=== PATIENT | male | born 1930 | race Two or more races ===

== ENCOUNTER 2017-07-03 06:20 | Inpatient (IN) | payer MEDICARE, MEDICAID ==
[~2017-07-03] VITALS: Ht 160 cm; Wt 65.8 kg
[2017-07-03] MEDS ORDERED: ACETAMINOPHEN 650 MG/SUPP.RECT RC ONE ×2 (06:30→07:16)
[2017-07-03] MEDS ORDERED: MEROPENEM 1 G in IV NS 0.9% 100 ML IV ONE (06:30)
[2017-07-03] MEDS ORDERED: VANCOMYCIN 1 GM in IV D5W 250 ML IV ONE (06:30)
[2017-07-03] MEDS ORDERED: IV NS 0.9% 1,000 ML BAG IV ONE (06:30)
--- NOTE | 2017-07-03 06:30 | NUR ---
TO BED 8 IS AN 86 YO MALE PATIENT BBRA FROM [facility] FOR SOB AND FEVER. PATIENT IS OBTUNDED. NONREBREATHER WHILE ENROUTE, TACHYPNEIC. KEPT HOB ELEVATED. PATENT AIRWAY OBTAINED VIA DEEP SUCTION BY RT AT BEDSIDE. PLACED ON TELE/VS MONITORING. DR GREGORY AT BEDSIDE. SKIN WARM AND DRY.
--- NOTE | 2017-07-03 06:32 | NUR ---
STARTED A SECOND IV LINE ON THE LFA G16, BLOOD BACK FLOW NOTED, FLUSHED WITH EASE. TAPED SECURELY. NS 2000CC BOLUS STARTED. ONGOING MONITORING IN PLACE. PATIENT SATTING AT 99%, EVEN AND UNLABORED BREATHING NOTED.
--- NOTE | 2017-07-03 06:45 | NUR ---
INSERTED [place] CATH F16 PER DR GREGORY VERBAL ORDER, DRAINED ABOUT 200CC OF ORANGE COLORED URINED. URINE SAMPLE COLLECTED, SENT TO LAB.
--- NOTE | 2017-07-03 06:55 | NUR ---
BANKING PARALEGAL AT BEDSIDE TO DRAW BLOOD.
[2017-07-03] MEDS ORDERED: VANCOMYCIN 1 GM VIAL ONE (07:15)
[2017-07-03] MEDS ORDERED: MEROPENEM 1 G VIAL IV ONE (07:15)
--- NOTE | 2017-07-03 07:15 | NUR ---
RT AT BEDSIDE TO DRAW ABG AND COLLECT RESPIRATORY CULTURE SAMPLES.
--- NOTE | 2017-07-03 07:16 | NUR ---
RT AT BEDSIDE FOR ABG
[2017-07-03 07:23] LABS: HEMATOCRIT 38 % (39-51); HEMOGLOBIN 12.6 g/dL (13.5-17.5); LYMPHOCYTES # (AUTO) 0.3 /CMM (0.8-4.8); LYMPHOCYTES % (AUTO) 7.7 % (20.0-44.0); MEAN CORPUSCULAR HEMOGLOBIN 28 PG (26.0-33.0); MEAN CORPUSCULAR HGB CONC 33 g/dl (31.0-36.0); MEAN CORPUSCULAR VOLUME 85 fL (80-96); MONOCYTES % (AUTO) 1.2 % (2.0-12.0); NEUTROPHILS # (AUTO) 3.7 /CMM (1.8-8.9); NEUTROPHILS % (AUTO) 91.1 % (43.0-81.0); PLATELET COUNT (AUTO) 227 /CMM (150-450); RDW COEFFICIENT OF VARIATION 14.9 (11.5-15.0); WHITE BLOOD COUNT (AUTO) 4.1 K/uL (4.3-11.0)
[2017-07-03 07:25] LABS: APPEARANCE,URINE SL CLOUDY (CLEAR); BILIRUBIN,URINE NEGATIVE (NEGATIVE); BLOOD, URINE TRACE Ery/uL (NEGATIVE); COLOR,URINE YELLOW (YELLOW); KETONES,URINE TRACE (NEGATIVE); LEUKOCYTE ESTERASE ,URINE NEGATIVE (NEGATIVE); NITRITE, URINE NEGATIVE (NEGATIVE); PH,URINE 5.5 (5.0-8.0); PROTEIN,URINE 1+ mg/dl (NEGATIVE); UGLUCOSE NEGATIVE (NEGATIVE); UROBILINOGEN,URINE 0.2 EU/dL (0.2)
--- NOTE | 2017-07-03 07:30 | NUR ---
PT NOTED NOTED SOILED- CLEANED AND CHANGED PER PROTOCOL.
[2017-07-03 07:31] LABS: ABG BASE EXCESS -8.3 mmol/L; ABG OXYGEN SATURATION 98.2 % (92.0-98.5); ABG PCO2 24.7 mmHg (35.0-45.0); ABG PH 7.397 (7.350-7.450); ABG PO2 143.1 mmHg (75.0-100.0); AaDO2 401.4 mmHg; COHb 0.1 % (0.5-1.5); MetHb 0.7 % (0.0-1.5); O2Hb 97.4 % (94.0-97.0); SITE, ABG Right Radial; VENT MODE, BG NRB
[2017-07-03 07:36] LABS: RBC,URINE 0-2 /HPF (0-2)
[2017-07-03 07:36] LABS: INR 1.24 (0.87-1.13)
[2017-07-03 07:37] LABS: BACTERIA,URINE Few /HPF (None Seen); MUCUS,URINE Few /LPF (None Seen); SQUAMOUS EPITHELIAL CELL,UR Few /HPF (None Seen)
[2017-07-03 07:41] LABS: ALANINE AMINOTRANSFERASE 189 U/L (12-78); ALBUMIN 2.3 g/dL (3.4-5.0); ALKALINE PHOSPHATASE 151 U/L (46-116); ASPARTATE AMINOTRANSFERASE 96 U/L (15-37); BILIRUBIN,DIRECT 0.3 mg/dL (0.0-0.2); BILIRUBIN,TOTAL 0.9 mg/dL (0.2-1.0); CALCIUM, SERUM 7.9 mg/dL (8.5-10.1); CARBON DIOXIDE 20 mmol/L (21-32); CHLORIDE 123 mmol/L (98-107); CREATININE 1.9 mg/dL (0.6-1.3); GLUCOSE 148 mg/dL (74-106); POTASSIUM 3.5 mmol/L (3.5-5.1); TOTAL PROTEIN, SERUM 7.4 g/dL (6.4-8.2); UREA NITROGEN, BLOOD 39 mg/dL (7-18)
[2017-07-03 07:42] LABS: TROPONIN I 0.375 ng/mL (0.00-0.056)
[2017-07-03 07:45] LABS: SODIUM SERUM 158 mmol/L (136-145)
--- NOTE | 2017-07-03 07:51 | NUR ---
PAGED DR DYER FOR EPIC
[2017-07-03] MEDS ORDERED: LEVO100T9 PO (07:59)
[2017-07-03] MEDS ORDERED: MEMA10TA PO (07:59)
[2017-07-03] MEDS ORDERED: DOCU100C36 PO (07:59)
[2017-07-03] MEDS ORDERED: MAGN400O6 PO (07:59)
[2017-07-03] MEDS ORDERED: NA P133E RC (07:59)
[2017-07-03] MEDS ORDERED: BENA40TA2 PO (07:59)
[2017-07-03] MEDS ORDERED: ACET-868 PO (07:59)
[2017-07-03] MEDS ORDERED: ASPI-1169 PO (07:59)
[2017-07-03] MEDS ORDERED: POTA20TA83 PO (07:59)
--- NOTE | 2017-07-03 08:00 | NUR ---
SANGITA COOPER CALLED FOR TELE BED.
--- NOTE | 2017-07-03 08:39 | NUR ---
TELE BED 327-2
--- NOTE | 2017-07-03 08:50 | NUR ---
CALLED [facility] FOR 3 TIMES FOR REPORT WAS PUT ON HOLD.
[2017-07-03] MEDS ORDERED: NA PHOS,M-B/NA PHOS,DI-BA 1 EA ENEMA RC PRN (09:00)
[2017-07-03] MEDS ORDERED: MAG HYDROX/AL HYDROX/SIMETH 30 ML UDC PO PRN (09:00)
[2017-07-03] MEDS ORDERED: HYDROCODONE/APAP 5/325MG 1 EACH TABLET PO PRN (09:00)
[2017-07-03] MEDS ORDERED: Z GUARD REMEDY 2 OZ OINT TP PRN (09:00)
[2017-07-03] MEDS ORDERED: ACETAMINOPHEN 325 MG TABLET PO PRN (09:00)
[2017-07-03] MEDS ORDERED: ZOLPIDEM TARTRATE 5 MG TABLET PO PRN (09:00)
[2017-07-03] MEDS ORDERED: MORPHINE SULFATE INJ 4 MG/ML DISP.SYRIN IV PRN (09:00)
[2017-07-03] MEDS ORDERED: ONDANSETRON HCL/PF 4 MG/2 ML VIAL IVP PRN (09:00)
[2017-07-03] MEDS ORDERED: MAGNESIUM HYDROXIDE 30 ML UDC PO PRN ×2 (09:00)
[2017-07-03] MEDS ORDERED: FEE PK DOSING 1 MIN EA MC ONE (09:24)
--- NOTE | 2017-07-03 09:25 | NUR ---
BS REPORT GIVEN TO SUMMER ANDRADE FOR ALBAN.
--- NOTE | 2017-07-03 09:28 | NUR ---
Tele Receiving note Received patient via gurney from ER. Bedside SBAr given. PAtient assisted into the bed safely. Bed is locked in lowest position, side rails up x3, bed alarm is on. Patient is obtundent, awake, responsive to light pain. Patient is in a room close to nurses station for close observation.Patient is on 10 L oxygen via the face mask, patient's vital sins are BP 96/55, HR 83, RR 18, Axillary temperature 99.7F, spo2 100%. Dr. Guerrero seen patient already. Patient presents with sacral redness with impaired skin integrity and perianal redness. Pictures taken and placed in the chart. Wound consult will be ordered. Patient's family is at the bedside. Will continue to assess/monitor throughout the shift.
[2017-07-03 09:30] VITALS: BP 98/56
[2017-07-03] MEDS ORDERED: MEMANTINE HCL 5 MG TABLET PO SCH (09:35)
--- NOTE | 2017-07-03 10:08 | NUR ---
Critical lab values reported by lab: lactic acid-3.[address] Guerrero informed.
[2017-07-03 12:00] VITALS: BP 126/80
[2017-07-03] MEDS: ASPIRIN 81 MG TAB.CHEW PO SCH (12:05)
[2017-07-03] MEDS: PANTOPRAZOLE 40 MG VIAL IV SCH (12:05)
[2017-07-03] MEDS: PIPERACILLIN /TAZOBACTAM 3.375 G in IV D5W 50 ML IV SCH ×3 (12:10→23:35)
[2017-07-03] MEDS: IV D5W 1,000 ML IV PRN (12:11)
[2017-07-03 13:30] LABS: THYROID STIMULATING HORMONE 1.866 uIU/mL (0.358-3.74)
[2017-07-03 16:00] VITALS: BP 101/72
--- NOTE | 2017-07-03 16:00 | NUR ---
CALLED [facility] AND SPOKE TO HOME MORTGAGE DISCLOSURE ACT SPECIALIST DEONTE VERIFYING PATIENT'S CODE STATUS. DEONTE FAXED OVER THE POLST OF THE PATIENT. PATIENT IS DNR. POLST PLACED IN THE CHART. CHART/CODE STATUS UPDATED TO DNR.
[2017-07-03] MEDS ORDERED: ACETAMINOPHEN 650 MG/SUPP.RECT RC PRN (18:30)
--- NOTE | 2017-07-03 18:30 | NUR ---
PATIENT'S TEMPERATURE IS TRENDING UP. CURRENTLY 100.1F DR DYER INFORMED. ORDER OBTAINED FOR SUPPOSITORY TYLENOL. READ BACK AND VERIFIED. WILL CARRY OUT RECEIVED. COOLING MEASURES APPLIED.
[2017-07-03] MEDS: LACTOBACILLUS RHAMNOSUS GG 1 EACH CAP.SPRINK PO SCH (18:33)
--- NOTE | 2017-07-03 19:12 | NUR ---
PERSONAL INJURY LAW SPECIALISTPEST CONTROL APPLICATOR NOTE Gave bedside SBAR report on the patient. Patient is obtunded, asleep, easily awaken in bed. Bed is locked, in lowest position, side rails up x3, bed alarm is on. Call light within reach. Educated to call for assistance using the call light. Patient appears to be uncomfortable. Suggested to the warehouse worker 2nd shift nurse to administer analgesic as prescribed. Tylenol administrated. Latest temperature 100.1F. External plastic cnc machine operator reading SR with BBB HR 77. Chest is rising equally, bilaterally. Spo2 97% on 10L oxygen via face mask. All needs are met at this time. Endorsed to the warehouse worker 2nd shift nurse for ale.
--- NOTE | 2017-07-03 19:25 | NUR ---
TELE/RN NOTES RECEIVED PT. LYING IN BED. PT. IS NON-VERBAL, OPENS EYES. BREATHING EVEN AND UNLABORED ON 10LPM FACE MASK. NO SOB, RESPIRATORY DISTRESS OR S/S OF PAIN NOTED AT THIS TIME. PT. WITH EXTERNAL TEAR DOWN MATCHER PRESENT AND INTACT. CURRENT RHYTHM = SINUS WITH BBB HR 72. PT. WITH RIGHT FOREARM 18 GAUGE IV SALINE LOCK PRESENT, PATENT AND INTACT. PT. WITH LEFT FOREARM PERIPHERAL IV PRESENT, PATENT AND INTACT ADMINISTERING TO PT. D5W @ 75ML/HR. PT. WITH [place] CATHETER PRESENT, PATENT AND INTACT DRAINING YELLOW URINE. PER DAYSHIFT NURSE PT. HAD TEMPERATURE 100.1 AND TYLENOL SUPPOSITORY WAS ADMINISTERED ORDERED. COOLING MEASURES IMPLEMENTED, CONTINUED AND IN PLACE. WILL RE-CHECK PT. TEMPERATURE AND CONTINUE COOLING MEASURES NEEDED. PER DAYSHIFT NURSE AWARE OF PT. LACTIC ACID 3.5 AND TROPONIN 0.459 WITH NO NEW ORDERS. BED LOCKED AND IN LOWEST POSITION, SIDE RAILS UP X3, BED ALARM ON, WILL CONTINUE TO MONITOR.
[2017-07-03 20:00] VITALS: BP 122/75
--- NOTE | 2017-07-03 20:08 | NUR ---
TELE/RN NOTES PT. TEMPERATURE IS 99.3. COOLING MEASURES EFFECTIVE. WILL CONTINUE COOLING MEASURES. WILL CONTINUE TO MONITOR.
--- NOTE | 2017-07-03 21:20 | NUR ---
TELE/RN NOTES PT. TEMPERATURE 98.9F. COOLING MEASURES EFFECTIVE, WILL CONTINUE COOLING MEASURES. WILL CONTINUE TO MONITOR.
[2017-07-03] MEDS: DOCUSATE SODIUM 100 MG CAPSULE PO SCH (22:00)
--- NOTE | 2017-07-03 22:30 | NUR ---
TELE/RN NOTES PT. TEMPERATURE 98.1F. COOLING MEASURES EFFECTIVE. WILL CONTINUE TO MONITOR.
--- NOTE | 2017-07-03 22:53 | NUR ---
TELE/RN NOTES UNABLE TO ADMINISTER TO PT. COLACE MEDICATION ORDERED. PT. KEPT NPO PENDING SWALLOW EVAL. WILL CONTINUE TO MONITOR.
[2017-07-04] VITALS: BP 109/55
[2017-07-04] MEDS: IV D5W 1,000 ML IV PRN (03:13)
[2017-07-04 04:00] VITALS: BP 124/66
[2017-07-04] MEDS: PIPERACILLIN /TAZOBACTAM 3.375 G in IV D5W 50 ML IV SCH ×4 (05:50→23:43)
--- NOTE | 2017-07-04 06:11 | NUR ---
TELE/RN NOTES PT. IS LYING IN BED. PT. IS NON-VERBAL, OPENS EYES. BREATHING EVEN AND UNLABORED ON 10LPM FACE MASK. NO SOB, RESPIRATORY DISTRESS OR S/S OF PAIN NOTED AT THIS TIME. PT. WITH EXTERNAL INSTALLMENT ACCOUNT CHECKER PRESENT AND INTACT. CURRENT RHYTHM = SINUS RHYTHM WITH BBB HR 77. PT. WITH RIGHT FOREARM 18 GAUGE IV SALINE LOCK PRESENT, PATENT AND INTACT. PT. WITH LEFT FOREARM PERIPHERAL IV PRESENT, PATENT AND INTACT ADMINISTERING TO PT. D5W @ 75ML/HR. PT. WITH [place] CATHETER PRESENT, PATENT AND INTACT. ALL PT. NEEDS MET. PT. OFFLOADED, TURNED AND REPOSITIONED Q2H AND NEEDED. BED LOCKED AND IN LOWEST POSITION, SIDE RAILS UP X3, BED ALARM ON, WILL ENDORSE TO DAYSHIFT NURSE FOR CONTINUITY OF CARE.
[2017-07-04] MEDS: LEVOTHYROXINE SODIUM 100 MCG TABLET PO SCH (07:30)
[2017-07-04 08:00] VITALS: BP 105/66
--- NOTE | 2017-07-04 08:00 | NUR ---
tele brick cleaner: initial assessment received pt in bed with eyes open, appears lethargic, but arousable. pt is on 10l/min via mask. hob elevated. reality orientation provided prn. am due med held. will continue to monitor.
[2017-07-04 08:06] LABS: BASOPHILS % (AUTO) 0.1 % (0.0-2.0); EOSINOPHILS # (AUTO) 0.1 /CMM (0.0-0.7); EOSINOPHILS % (AUTO) 1.5 % (0.0-6.0); HEMATOCRIT 35 % (39-51); HEMOGLOBIN 11.3 g/dL (13.5-17.5); LYMPHOCYTES # (AUTO) 0.6 /CMM (0.8-4.8); LYMPHOCYTES % (AUTO) 8.4 % (20.0-44.0); MEAN CORPUSCULAR HEMOGLOBIN 28 PG (26.0-33.0); MEAN CORPUSCULAR HGB CONC 33 g/dl (31.0-36.0); MEAN CORPUSCULAR VOLUME 87 fL (80-96); MONOCYTES # (AUTO) 0.1 /CMM (0.1-1.30); MONOCYTES % (AUTO) 2.1 % (2.0-12.0); NEUTROPHILS # (AUTO) 6.2 /CMM (1.8-8.9); NEUTROPHILS % (AUTO) 87.9 % (43.0-81.0); PLATELET COUNT (AUTO) 164 /CMM (150-450); RDW COEFFICIENT OF VARIATION 15.1 (11.5-15.0); RED BLOOD CELL COUNT(AUTO) 3.99 MIL/uL (4.5-6.0)
[2017-07-04 08:13] LABS: ALANINE AMINOTRANSFERASE 120 U/L (12-78); ALKALINE PHOSPHATASE 110 U/L (46-116); ASPARTATE AMINOTRANSFERASE 82 U/L (15-37); BILIRUBIN,TOTAL 0.6 mg/dL (0.2-1.0); CALCIUM, SERUM 7.7 mg/dL (8.5-10.1); CARBON DIOXIDE 24 mmol/L (21-32); CHLORIDE 118 mmol/L (98-107); CREATININE 1.4 mg/dL (0.6-1.3); GLUCOSE 135 mg/dL (74-106); MAGNESIUM 2.6 mg/dL (1.8-2.4); PHOSPHORUS 2.8 mg/dL (2.5-4.9); POTASSIUM 3.4 mmol/L (3.5-5.1); SODIUM SERUM 153 mmol/L (136-145); TOTAL PROTEIN, SERUM 6.7 g/dL (6.4-8.2); UREA NITROGEN, BLOOD 34 mg/dL (7-18)
[2017-07-04] MEDS: ASPIRIN 81 MG TAB.CHEW PO SCH (08:51)
[2017-07-04] MEDS: LACTOBACILLUS RHAMNOSUS GG 1 EACH CAP.SPRINK PO SCH ×2 (08:52→16:33)
[2017-07-04] MEDS: VANCOMYCIN 0.75 GM in IV NS 0.9% 250 ML IV SCH (09:10)
[2017-07-04] MEDS: PANTOPRAZOLE 40 MG VIAL IV SCH (09:12)
--- NOTE | 2017-07-04 09:20 | NUR ---
tele lead fire protection engineer: s.t. eval swallow eval done at bedside, pt failed swallow eval per phillip. all am meds held due to pt condition this morning.
[2017-07-04] MEDS ORDERED: POTASSIUM CHLORIDE 20 MEQ TAB.PRT.SR PO SCH (09:30)
--- NOTE | 2017-07-04 09:50 | NUR ---
tele certified nurse practitioner: notes lab called re: troponin 2.648. dr. unnez (councilman) here and made aware.
[2017-07-04] MEDS: CARVEDILOL 3.125 MG TABLET PO SCH ×2 (10:00→21:00)
[2017-07-04] MEDS: POTASSIUM CL. PREMIX PERIPHER. 50 ML IV SCH ×2 (10:20→11:28)
--- NOTE | 2017-07-04 10:30 | NUR ---
tele licensed psychologist director: notes [place] (acnp) here and made aware re: failed swallow eval and still npo per s.t. recommendation; also pt troponin trending up to 2.648 with no new order at this time. pt is dnr.
--- NOTE | 2017-07-04 10:43 | NUR ---
tele track repair supervisor: sirena lozada (wound nurse) assessed pt skin. family visiting at this time.
--- NOTE | 2017-07-04 10:54 | NUR ---
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 PT HAS LOWER EXTREMITY CONTRACTURES. PT IS IMMOBILE WITH LEIF SCORE OF 11. FIRST STEP MATTRESS ORDERED. ALL WOUND CARE AND SKIN PROTECTION RECOMMENDATIONS DISCUSSED WITH NURSING STAFF. WILL SEE PRN. CORONEL IN AGREEMENT WITH PLAN OF CARE. Addendum: 07/04/17 at 1056 by IRAM KOENIG WNDNU Amended: Links added.
[2017-07-04] MEDS ORDERED: HYDROGEL DRESSING 90 GM TUBE TP PRN (11:00)
[2017-07-04] MEDS ORDERED: HYDROGEL DRESSING 90 GM TUBE TP SCH (11:00)
[2017-07-04 11:08] LABS: NEUTROPHILS % (MANUAL) 83 (42-76)
[2017-07-04 11:09] LABS: BAND % (MANUAL) 6 % (0.0-5.0); EOSINOPHILS % (MANUAL) 2 % (0-4); LYMPHOCYTES % (MANUAL) 7 % (16-48); MONOCYTES % (MANUAL) 2 % (0-11.0)
--- NOTE | 2017-07-04 11:30 | NUR ---
tele weatherization coordinator: md visit seen and examined by india (acnp) at this time. family remains at bedside. all questions and concerns answered by india and updated plan of care. for id consult per site project manager.
[2017-07-04 12:00] VITALS: BP 132/76
[2017-07-04 12:21] LABS: *SPE A/G RATIO 0.7 (0.7-1.7); *SPE ALBUMIN 2.6 g/dL (2.9-4.4); *SPE ALPHA-1-GLOBULIN 0.4 g/dL (0.0-0.4); *SPE ALPHA-2-GLOBULIN 1.1 g/dL (0.4-1.0); *SPE GLOBULIN, TOTAL 3.6 g/dL (2.2-3.9); *SPE M-SPIKE Not Observed g/dL (Not Observed); *SPEGAMMA GLOBULIN 1.1 g/dL (0.4-1.8)
--- NOTE | 2017-07-04 12:32 | NUR ---
tele customer expert: neuro f/u seen by dr. sebastian with order of stat ct head without contrast. order acknowledged.
--- NOTE | 2017-07-04 12:50 | NUR ---
tele quality assistant: nephro f/u seen by dr. verdin at this time with new orders. orders acknowledged.
--- NOTE | 2017-07-04 12:52 | NUR ---
tele student life vice president: notes taken down via bed for ct head stat at this time, accompanied by tech.
--- NOTE | 2017-07-04 13:53 | NUR ---
tele aeronautical research engineer: notes titrated o2 to 8l/min via mask. will continue to monitor.
--- NOTE | 2017-07-04 14:06 | NUR ---
tele aircraft parts assembler: notes areli lebron called and informed me that pt is positive mrsa nares. cn and made aware. pt to start on bactroban giulia to nostril. isolation precaution maintained.
--- NOTE | 2017-07-04 14:34 | NUR ---
tele epic willow analyst: notes lab called re: trop=[phone]. indai (acnp) notified and made aware with no new order, stated, "can you call dr. nunez." dr. nunez notified and made aware with no new order. pt is dnr status. cn made aware. also informed [place] that pt has no anticoagulation medication, pt is on baby aspirin only.
[2017-07-04 16:00] VITALS: BP 129/84
[2017-07-04] MEDS: CLOTRIMAZOLE 1% 15 GM TUBE TP SCH (16:55)
--- NOTE | 2017-07-04 18:30 | NUR ---
tele gold reclaimer: notes pt tolerated o2 of 8l/min via mask. titrated o2 to 6l/min via mask. hob elevated. pt remains npo, lethargic. continue on ivf, infusing well. needs attended. call light within reach. will continue to monitor.
--- NOTE | 2017-07-04 19:19 | NUR ---
TELE/RN NOTES PT. IS LYING IN BED. PT. IS NON-VERBAL, RESTING BREATHING EVEN AND UNLABORED ON 6LPM FACE MASK. NO SOB, RESPIRATORY DISTRESS OR S/S OF PAIN NOTED AT THIS TIME. PT. WITH EXTERNAL RECRUITMENT INTERN PRESENT AND INTACT. PT. WITH RIGHT FOREARM 18 GAUGE IV SALINE LOCK PRESENT, PATENT AND INTACT. PT. WITH LEFT FOREARM PERIPHERAL IV PRESENT, PATENT AND INTACT ADMINISTERING TO PT. D1/2 NS WITH 20 MEQ KCL @ 125ML/HR. PT. WITH [place] CATHETER PRESENT, PATENT AND INTACT DRAINING YELLOW URINE. PER DAYSHIFT NURSE PT. FAILED SWALLOW EVAL AND REMAINS NPO AT THIS TIME AND WILL BE RE-EVALUATED TOMORROW. PT. REMAINS ON CONTACT ISOLATION, ISOLATION PRECAUTIONS IMPLEMENTED AND IN PLACE. BED LOCKED AND IN LOWEST POSITION, SIDE RAILS UP X3, BED ALARM ON, WILL CONTINUE TO MONITOR.
[2017-07-04 20:00] VITALS: BP 120/74
[2017-07-04] MEDS ORDERED: MUPIROCIN OINT 2% 22 GM TUBE SCH (21:00)
--- NOTE | 2017-07-04 21:30 | NUR ---
TELE/RN NOTES NOTIFIED EPIC BLOCKER AUTOMATIC CPAS FREDA PT. WITH CRITICAL LAB VALUE: TROPONIN 8.57. PER CPAS FREDA OK NO NEW ORDERS AT THIS TIME. WILL CONTINUE TO MONITOR.
--- NOTE | 2017-07-04 21:31 | NUR ---
TELE/RN NOTES UNABLE ADMINISTER TO PT. COREG MEDICATION ORDERED. PT. IS LETHARGIC AND BEING KEPT NPO AT THIS TIME. PT. FAILED SWALLOW EVALUATION TODAY AND WILL BE RE-EVALUATED TOMORROW. WILL CONTINUE TO MONITOR.
[2017-07-04] MEDS: MUPIROCIN OINT 2% 22 GM TUBE SCH (21:45)
[2017-07-04] MEDS: DOCUSATE SODIUM 100 MG CAPSULE PO SCH (22:00)
--- NOTE | 2017-07-04 22:24 | NUR ---
TELE/RN NOTES UNABLE TO ADMINISTER TO PT. COLACE MEDICATION ORDERED. PT. IS LETHARGIC AND NPO AT THIS TIME. WILL CONTINUE TO MONITOR.
[2017-07-05] VITALS: BP 109/63
--- NOTE | 2017-07-05 | NUR ---
MS/RN NOTES PT. WITH TEMPERATURE OF 99.6F. COOLING MEASURES IMPLEMENTED. WILL CONTINUE TO MONITOR.
--- NOTE | 2017-07-05 01:10 | NUR ---
MS/RN NOTES PT. TEMPERATURE 98.7F. COOLING MEASURES EFFECTIVE. WILL CONTINUE TO MONITOR.
[2017-07-05 04:00] VITALS: BP 100/53
[2017-07-05] MEDS ORDERED: IV PREMIX 0.45% NS + KCL 1,000 ML IV ONE (04:54)
[2017-07-05] MEDS: PIPERACILLIN /TAZOBACTAM 3.375 G in IV D5W 50 ML IV SCH ×4 (05:49→23:33)
--- NOTE | 2017-07-05 06:45 | NUR ---
MS/RN NOTES PT. IS LYING IN BED RESTING, BREATHING EVEN AND UNLABORED ON 8LPM FACE MASK. NO SOB, RESPIRATORY DISTRESS OR S/S OF PAIN NOTED AT THIS TIME. PT. WITH RIGHT FOREARM 18 GAUGE IV SALINE LOCK PRESENT, PATENT AND INTACT. PT. WITH LEFT FOREARM PERIPHERAL IV PRESENT, PATENT AND INTACT ADMINISTERING TO PT. D1/2 NS WITH 20 MEQ KCL @ 125ML/HR. PT. WITH [place] CATHETER PRESENT, PATENT AND INTACT DRAINING YELLOW URINE. PT. REMAINS NPO AND ON CONTACT ISOLATION, ISOLATION. ALL PT. NEEDS MET. PT. OFFLOADED, TURNED AND REPOSITIONED Q2H AND NEEDED. BED LOCKED AND IN LOWEST POSITION, SIDE RAILS UP X3, BED ALARM ON, WILL ENDORSE TO DAYSHIFT NURSE FOR CONTINUITY OF CARE.
[2017-07-05] MEDS: LEVOTHYROXINE SODIUM 100 MCG TABLET PO SCH (07:30)
--- NOTE | 2017-07-05 07:45 | NUR ---
RN NOTES RECEIVED PATIENT IN BED, ASLEEP, EASILY AROUSABLE DURING CARE. RESPIRATIONS EVEN AND UNLABORED, CONTINUED ON 8L OF OXYGEN VIA FACEMASK,IN NO APPARENT PAIN OR DISCOMFORT AT THIS TIME, CONTINUED ON PAIN MANAGEMENT. IV ACCESS TO RFA PATENT AND INTACT, NO REDNESS OR INFILTRATION NOTED. SAFETY MEASURES IN PLACE,CALL LIGHT WITHIN EASY REACH WILL CONTINUE TO MONITOR
[2017-07-05 08:00] VITALS: BP 109/65
[2017-07-05 08:34] LABS: BASOPHILS % (AUTO) 0.1 % (0.0-2.0); EOSINOPHILS # (AUTO) 0.3 /CMM (0.0-0.7); EOSINOPHILS % (AUTO) 3.2 % (0.0-6.0); HEMATOCRIT 33 % (39-51); LYMPHOCYTES # (AUTO) 0.8 /CMM (0.8-4.8); LYMPHOCYTES % (AUTO) 7.2 % (20.0-44.0); MEAN CORPUSCULAR HEMOGLOBIN 29 PG (26.0-33.0); MEAN CORPUSCULAR HGB CONC 33 g/dl (31.0-36.0); MEAN CORPUSCULAR VOLUME 86 fL (80-96); MONOCYTES # (AUTO) 0.3 /CMM (0.1-1.30); MONOCYTES % (AUTO) 2.5 % (2.0-12.0); NEUTROPHILS # (AUTO) 9.1 /CMM (1.8-8.9); RDW COEFFICIENT OF VARIATION 14.7 (11.5-15.0); RED BLOOD CELL COUNT(AUTO) 3.87 MIL/uL (4.5-6.0); WHITE BLOOD COUNT (AUTO) 10.5 K/uL (4.3-11.0)
[2017-07-05] MEDS: ASPIRIN 81 MG TAB.CHEW PO SCH (08:36)
[2017-07-05] MEDS: CARVEDILOL 3.125 MG TABLET PO SCH ×2 (08:36→21:00)
[2017-07-05] MEDS: LACTOBACILLUS RHAMNOSUS GG 1 EACH CAP.SPRINK PO SCH ×2 (08:37→17:00)
[2017-07-05 09:14] LABS: BAND % (MANUAL) 7 % (0.0-5.0); EOSINOPHILS % (MANUAL) 3 % (0-4); LYMPHOCYTES % (MANUAL) 5 % (16-48); MONOCYTES % (MANUAL) 4 % (0-11.0); NEUTROPHILS % (MANUAL) 81 (42-76)
[2017-07-05 09:16] LABS: PLATELET COUNT (AUTO) 159 /CMM (150-450)
[2017-07-05] MEDS: PANTOPRAZOLE 40 MG VIAL IV SCH (09:35)
[2017-07-05] MEDS: CLOTRIMAZOLE 1% 15 GM TUBE TP SCH ×2 (09:43→17:30)
[2017-07-05] MEDS: MUPIROCIN OINT 2% 22 GM TUBE SCH ×2 (09:43→21:27)
[2017-07-05] MEDS: VANCOMYCIN 0.75 GM in IV NS 0.9% 250 ML IV SCH (09:44)
[2017-07-05 09:46] LABS: CALCIUM, SERUM 7.7 mg/dL (8.5-10.1); CARBON DIOXIDE 23 mmol/L (21-32); CHLORIDE 115 mmol/L (98-107); CREATININE 1.2 mg/dL (0.6-1.3); GLUCOSE 96 mg/dL (74-106); MAGNESIUM 2.5 mg/dL (1.8-2.4); PHOSPHORUS 2.8 mg/dL (2.5-4.9); POTASSIUM 3.7 mmol/L (3.5-5.1); SODIUM SERUM 149 mmol/L (136-145); UREA NITROGEN, BLOOD 27 mg/dL (7-18)
[2017-07-05 09:53] LABS: TROPONIN I 5.061 ng/mL (0.00-0.056)
[2017-07-05 16:00] VITALS: BP 136/70
--- NOTE | 2017-07-05 19:13 | NUR ---
RN NOTES PATIENT IN BED, ASLEEP, EASILY AROUSABLE DURING CARE. RESPIRATIONS EVEN AND UNLABORED, CONTINUED ON 8L OF OXYGEN VIA FACEMASK,IN NO APPARENT PAIN OR DISCOMFORT AT THIS TIME, CONTINUED ON PAIN MANAGEMENT.[place] CATHETER PATENT AND INTACT. IV ACCESS TO RFA PATENT AND INTACT, NO REDNESS OR INFILTRATION NOTED. SAFETY MEASURES IN PLACE,CALL LIGHT WITHIN EASY REACH WILL CONTINUE TO MONITOR AND ENDORSE TO NEXT SHIFT FOR CONTINUITY OF CARE
--- NOTE | 2017-07-05 19:49 | NUR ---
RN NOTES RECEIVED PATIENT IN BED, AWAKE, EASILY AROUSABLE DURING CARE. RESPIRATIONS EVEN AND UNLABORED, CONTINUED ON OF OXYGEN VIA FACE MASK,IN NO APPARENT PAIN OR DISCOMFORT AT THIS TIME, CONTINUED ON PAIN MANAGEMENT. IV ACCESS TO RIGHT FOR ARM PATENT AND INTACT, NO REDNESS OR INFILTRATION NOTED. SAFETY MEASURES IN PLACE,CALL LIGHT WITHIN EASY REACH WILL CONTINUE TO MONITOR
[2017-07-05 20:00] VITALS: BP 139/73
[2017-07-05] MEDS: IPRATROPIUM NEB FS 0.5 MG/2.5 ML AMPUL.NEB NEB SCH (20:10)
[2017-07-05 21:00] VITALS: BP 134/73
[2017-07-05] MEDS: DOCUSATE SODIUM 100 MG CAPSULE PO SCH (21:31)
--- NOTE | 2017-07-05 21:32 | NUR ---
RN NOTES UNABLE ADMINISTER TO PT. COREG MEDICATION ORDERED. PT. IS LETHARGIC AND BEING KEPT NPO AT THIS TIME. PT. FAILED SWALLOW EVALUATION WILL CONTINUE TO MONITOR.
--- NOTE | 2017-07-05 21:35 | NUR ---
RN NOTES UNABLE TO ADMINISTER TO PT. COLACE MEDICATION ORDERED. PT. IS LETHARGIC AND NPO AT THIS TIME. WILL CONTINUE TO MONITOR.
[2017-07-06] MEDS: IPRATROPIUM NEB FS 0.5 MG/2.5 ML AMPUL.NEB NEB SCH ×4 (01:46→19:43)
[2017-07-06] MEDS: PIPERACILLIN /TAZOBACTAM 3.375 G in IV D5W 50 ML IV SCH ×2 (05:36→11:47)
[2017-07-06] MEDS: LEVOTHYROXINE SODIUM 100 MCG TABLET PO SCH (07:30)
--- NOTE | 2017-07-06 07:39 | NUR ---
MS RN: INITIAL NOTE RECEIVED PT NON-VERBAL, OPEN EYES. LETHARGIC. NO SOB NOTED. ON 8L MASK SATING AT 94%. NO PAIN NOTED VIA FLACC SCALE. INCONTINENT. USES DIAPER. HOB ELEVATED 30 DEGREES AT ALL TIMES. [place] CATH IN PLACE AND DRAINING. BEDBOUND. TURNED AND REPOSITIONED Q 2HOURS. L FA#18 RUNNING 1/2 NS AT MEQ KCL AR 125ML/HR. ON CONTACT ISOLATION FOR MRSA NARES. RESTING COMFORTABLY IN BED. CALL LIGHT WITHIN REACH.
[2017-07-06 07:43] LABS: BASOPHILS % (AUTO) 0.2 % (0.0-2.0); EOSINOPHILS # (AUTO) 0.3 /CMM (0.0-0.7); EOSINOPHILS % (AUTO) 3.1 % (0.0-6.0); HEMATOCRIT 37 % (39-51); HEMOGLOBIN 12.1 g/dL (13.5-17.5); LYMPHOCYTES # (AUTO) 0.5 /CMM (0.8-4.8); LYMPHOCYTES % (AUTO) 5.8 % (20.0-44.0); MEAN CORPUSCULAR HEMOGLOBIN 28 PG (26.0-33.0); MEAN CORPUSCULAR HGB CONC 33 g/dl (31.0-36.0); MEAN CORPUSCULAR VOLUME 85 fL (80-96); MONOCYTES # (AUTO) 0.3 /CMM (0.1-1.30); MONOCYTES % (AUTO) 3.3 % (2.0-12.0); NEUTROPHILS # (AUTO) 7.4 /CMM (1.8-8.9); NEUTROPHILS % (AUTO) 87.6 % (43.0-81.0); PLATELET COUNT (AUTO) 191 /CMM (150-450); RDW COEFFICIENT OF VARIATION 14.3 (11.5-15.0); WHITE BLOOD COUNT (AUTO) 8.4 K/uL (4.3-11.0)
[2017-07-06 07:49] LABS: ALANINE AMINOTRANSFERASE 106 U/L (12-78); ALKALINE PHOSPHATASE 177 U/L (46-116); ASPARTATE AMINOTRANSFERASE 76 U/L (15-37); BILIRUBIN,TOTAL 0.8 mg/dL (0.2-1.0); CALCIUM, SERUM 7.7 mg/dL (8.5-10.1); CARBON DIOXIDE 21 mmol/L (21-32); CHLORIDE 110 mmol/L (98-107); CREATININE 1.2 mg/dL (0.6-1.3); GLUCOSE 85 mg/dL (74-106); MAGNESIUM 2.3 mg/dL (1.8-2.4); PHOSPHORUS 2.5 mg/dL (2.5-4.9); POTASSIUM 3.8 mmol/L (3.5-5.1); SODIUM SERUM 144 mmol/L (136-145); TOTAL PROTEIN, SERUM 7.1 g/dL (6.4-8.2); UREA NITROGEN, BLOOD 19 mg/dL (7-18)
[2017-07-06 08:30] LABS: TROPONIN I 2.784 ng/mL (0.00-0.056)
[2017-07-06] MEDS: PANTOPRAZOLE 40 MG VIAL IV SCH (08:36)
[2017-07-06] MEDS: VANCOMYCIN 0.75 GM in IV NS 0.9% 250 ML IV SCH (08:36)
[2017-07-06] MEDS: ASPIRIN 81 MG TAB.CHEW PO SCH (08:36)
[2017-07-06] MEDS: LACTOBACILLUS RHAMNOSUS GG 1 EACH CAP.SPRINK PO SCH (08:37)
[2017-07-06] MEDS: CARVEDILOL 3.125 MG TABLET PO SCH (08:37)
[2017-07-06] MEDS: MUPIROCIN OINT 2% 22 GM TUBE SCH ×2 (08:38→21:05)
[2017-07-06] MEDS: CLOTRIMAZOLE 1% 15 GM TUBE TP SCH (08:38)
--- NOTE | 2017-07-06 08:58 | NUR ---
RECHECKED BP MANUALLY. 155/92, PULSE 87. NO DISTRESS NOTED. NOTIEF MARIAH DUTTON. WILL CONTINUE TO MONITOR.
[2017-07-06] MEDS ORDERED: LORAZEPAM INJ 2 MG/ML VIAL IV PRN (11:00)
--- NOTE | 2017-07-06 12:56 | NUR ---
PER ELEVATOR MECHANIC NEGRETTI TOD/C ALL MEDICATIONS OTHER THAN PRN MEDS AND ATB FOR NARES MRSA. WILL BE ON COMFORT CARE.
[2017-07-06] MEDS: MORPHINE SULFATE 30 MG in IV NS 0.9% 28 ML, PCA TOTAL VOLUME 1 BAG IV PRN ×3 (13:16)
--- NOTE | 2017-07-06 13:17 | NUR ---
INITIATED MORPHINE CONTINUES DRIP PER PRODUCT MARKETING ENGINEER NEGRETTI ORDER DUE TO PT BEING ON COMFORT CARE MEASURES. ORDER TO START DOSE AT 1MG/HR AND INCREASE TO A MAX DOSE OF 6MG/HR NEEDED FOR COMFORT CARE. PT COMFORTABLE AT THE MOMENT. NO DISTRESS NOTED. ON 5L NC WITH HUMIDIFIER. WILL CONTINUE TO ASSES. FAMILY AT BED SIDE. HOB ELEVATED.
--- NOTE | 2017-07-06 14:00 | NUR ---
PT STILL ONE CONTINUES MORPHINE DRIP. RESTING IN BED COMFORTABLY. RR 18. NO SIGNS OF DISTRESS. NO SIGNS OF PAIN. ON 5L NC SATING AT 94%.. KEPT CLEAN AND DRY. COMFORT CARE PROVIDED. WILL CONTINUE TO MONITOR. DID NOT INCREASE RATE OF MORPHINE DUE TO BEING STABLE
--- NOTE | 2017-07-06 14:43 | NUR ---
DELLA received a call from pt's RAYMOND Webber informing SW that family is requesting for a Episcopalian brick setter operator to visit the pt. Pt. is on comfort measures at this time. DELLA contacted Bb Shot Packer Janak Bautista [phone] cell who informed SW he can be at [facility] around 4:30PM. DELLA contacted RAYMOND Webber to inform her that the brick setter operator will be at [facility] at 4:30PM.
--- NOTE | 2017-07-06 15:00 | NUR ---
PT STILL ONE CONTINUES MORPHINE DRIP. DID NOT INCREASE RATE DUE TO BEING STABLE. RESTING IN BED COMFORTABLY. RR 20. NO SIGNS OF DISTRESS. NO SIGNS OF PAIN. ON 5L NC SATING AT 96%.. KEPT CLEAN AND DRY. COMFORT CARE PROVIDED. WILL CONTINUE TO MONITOR.
[2017-07-06 16:00] VITALS: BP 97/54
--- NOTE | 2017-07-06 16:17 | NUR ---
per grand daughter and family. if pt passes away- contact Shahriar [address] [place]. phone number [phone]. Contact grand daughter for any questions [phone]
--- NOTE | 2017-07-06 17:21 | NUR ---
PT STILL ON CONTINUOS MORPHINE DRIP. STABLE. RR 18. NO S/S OF PAIN USING FLACC SCALE. NOT IN DISTRESS. COMFORTABLE IN BED. WOUND CARE DONE. TURNED AND REPOSITIONED Q 2HOURS. NO SOB NOTED. ON 5L NC SATING AT 94%. FAMILY AT BEDSIDE. KEPT CLEAN AND DRY.
--- NOTE | 2017-07-06 18:39 | NUR ---
MS RN: CLOSING NOTE PT NON-VERBAL OPENS EYES. NPO. ON COMFORT CARE. ON MORPHINE DRIP CONTINUOS. ORDERS TO START AT 1MG AND INCREASE NEEDED Q1 HOUR TO A TOTAL OF 6MG/HR. [place] CATH IN PLACE AND DRAINING. OUTPUT 1200. BEDREST. TURNED AND REPOSITIONED Q 2HOURS. NO DISTRESS NOTED. NO PAIN USING FLACC SCALE. ALL MEDS D/C ORAL. NPO. L FA 317 RUNNING MORPHINE AT 1MG/HR. NO INCREASE DONE DURING SHIFT. FAMILY AT BEDSIDE. KEPT CLEAN AND DRY. HOB ELEVATED. RESTING COMFORTABLY IN BED. CALL LIGHT WITHIN REACH.
--- NOTE | 2017-07-06 19:25 | NUR ---
MS RN NOTES RECEIVED PT IN BED,NON-VERBAL BUT OPENS EYES. FAMILY MEMBERS AT BEDSIDE. PT ON O2 VIA MASK @ 6LPM, EMILIE WELL. 02 SAT IS 95 % AT THIS TIME. NO DISTRESS , NOR SOB NOTED. APPEARS COMFORTABLE. PT ON NPO. ON COMFORT CARE. ON MORPHINE DRIP, ORDERS TO START AT 1MG AND INCREASE NEEDED Q1 HOUR TO A TOTAL OF 6MG/HR. PT CURRENTLY ON MORPHINE DRIP 1 MG / HR. [place] CATH IN PLACE AND DRAINING WITH YELLOW URINE. TURNED AND REPOSITIONED Q 2HOURS. KEPT CLEAN AND DRY. HOB ELEVATED. RESTING COMFORTABLY IN BED. CALL LIGHT WITHIN REACH. WILL CONTINUE TO MONITOR.
[2017-07-06 20:00] VITALS: BP 119/69
[2017-07-07] MEDS ORDERED: VANCOMYCIN 1 GM in IV D5W 250 ML IV SCH (01:00)
[2017-07-07] MEDS: IPRATROPIUM NEB FS 0.5 MG/2.5 ML AMPUL.NEB NEB SCH ×5 (01:44→21:09)
--- NOTE | 2017-07-07 06:12 | NUR ---
PT NOTED WITH FACIAL GRIMACING AND MOANING, PT IS NON VERBAL AND ON COMFORT MEASURES. PT ON MORPHINE DRIP WITH ORDER TO TITRATE PRN UP TO 6 MG/ HR, MORPHINE DRIP INCREASED TO 2 MG/HR, FROM 1MG/HR ORDERED, WITNESSED BY RAYMOND PARIKH CHARGE NURSE AND RAYMOND VAZQUEZ. WILL CONTINUE TO MONITOR AND ENDORSE PT ACCORDINGLY.
[2017-07-07 08:00] VITALS: BP 134/90
--- NOTE | 2017-07-07 08:00 | NUR ---
m/s housing liaison: initial assessment received pt in bed with eyes close, lethargic, pt is on comfort measures only. pt is on a morphine drip at 2mg/hr. no family at bedside. resp. even and unlabored. will continue to monitor.
[2017-07-07 08:04] LABS: CALCIUM, SERUM 7.5 mg/dL (8.5-10.1); CARBON DIOXIDE 22 mmol/L (21-32); CHLORIDE 110 mmol/L (98-107); CREATININE 1.1 mg/dL (0.6-1.3); GLUCOSE 86 mg/dL (74-106); POTASSIUM 3.8 mmol/L (3.5-5.1); SODIUM SERUM 146 mmol/L (136-145); UREA NITROGEN, BLOOD 15 mg/dL (7-18)
[2017-07-07] MEDS: MUPIROCIN OINT 2% 22 GM TUBE SCH ×2 (08:28→22:32)
[2017-07-07] MEDS ORDERED: LORAZEPAM INJ 2 MG/ML VIAL IV PRN (10:00)
--- NOTE | 2017-07-07 10:00 | NUR ---
m/s matlab developer: notes o2 change from mask to nasal canula at 3l/min at this time. rr at 20. pt remains on morphine drip at 2mg/hr. mouth care rendered. will continue to monitor.
--- NOTE | 2017-07-07 10:10 | NUR ---
MS/RN Morphine order modified Per Dr Nascimento - morphine order changed to may titrate to maximum of 20mg/hr, respirations to be kept less than 18.
--- NOTE | 2017-07-07 10:20 | NUR ---
m/s efren: notes morphine drip increase to 4mg/hr by cn. am care rendered. will continue to monitor. Addendum: 07/07/17 at 1047 by TATIANA VERMAN resp. rate @20 at this time.
--- NOTE | 2017-07-07 10:40 | NUR ---
m/s roustabout crew pusher: md visit family at bedside. seen by india quigley at this time. pt remains on comfort measures. will continue to monitor.
[2017-07-07] MEDS: MORPHINE SULFATE 30 MG in IV NS 0.9% 28 ML, PCA TOTAL VOLUME 1 BAG IV PRN ×6 (11:24→20:11)
--- NOTE | 2017-07-07 12:00 | NUR ---
m/s liquefaction supervisor: notes in bed resting comfortable. breathing pattern change, pt has periods of renea cope breathing at 8/min. family remains at bedside. remains on morphine drip at 4mg/hr. turned and repositioned. will continue to monitor.
--- NOTE | 2017-07-07 15:28 | NUR ---
m/s doctor of naturopathic medicine: notes family remains at bedside. breathing remains labored with episode of renea cope respirations at 6 breaths/minute. pt remains on morphine drip at 4mg/hr. ativan 1mg ivp given by rn. will continue to monitor.
[2017-07-07 16:00] VITALS: BP 86/54
--- NOTE | 2017-07-07 16:50 | NUR ---
m/s doughnut dough mixer: notes pt remains on comfort measures only. pt appears comfortable. pt having more pause in between breaths at 4-5 per minute. family remains at bedside. will continue to monitor.
--- NOTE | 2017-07-07 19:00 | NUR ---
m/s body engineer: notes pt continue to have long pause in between breath, but appears comfortable. remains on morphine drip at 4mg/hr. hob elevated. on o2 at 4l/min via n/c. family remains at bedside. will continue to monitor.
--- NOTE | 2017-07-07 19:30 | NUR ---
MS/RN NOTES RECEIVED PT. LYING IN BED RESTING WITH EYES CLOSED AND MOUTH OPEN. PT. IS NON-VERBAL. BREATHING EVEN AND UNLABORED ON 4LPM O2 VIA NC. NO SOB, RESPIRATORY DISTRESS OR S/S OF PAIN NOTED AT THIS TIME. PT. IS UNLABORED AND IRREGULAR WITH LONG PAUSES NOTED IN BETWEEN BREATHS, BREATHING 5 BREATHS, PER MINUTE. PT. WITH [place] CATHETER PRESENT, PATENT AND INTACT DRAINING YELLOW URINE. PT. FAMILY DOES NOT WANT PT. TO BE MOVED, TURNED OR REPOSITIONED. PT. WITH RIGHT FOREARM 18 GAUGE PERIPHERAL IV PRESENT, PATENT AND INTACT ADMINISTERING TO PT. MORPHINE DRIP @ 4MG/HR. PT. APPEARS COMFORTABLE AT THIS TIME. CONTACT ISOLATION IMPLEMENTED AND IN PLACE. PT. WITH FAMILY MEMBERS PRESENT AT BEDSIDE. BED LOCKED AND IN LOWEST POSITION, SIDE RAILS UP X3, BED ALARM ON, WILL CONTINUE TO MONITOR.
[2017-07-07] MEDS ORDERED: KEY,NONCONTROL,TO KEEP IN PYXI 1 EA MC ONE (19:48)
--- NOTE | 2017-07-07 20:11 | NUR ---
MS/RN NOTES CHANGED. PT. MORPHINE BAG ORDERED. NO MEDICATION WASTED. HUNG NEW BAG OF MORPHINE 30MG ADMINISTERING TO PT. @ 5MG/HR. PT. IS BREATHING UNEVEN AND UNLABORED ON 6LPM O2 VIA NC. NO SOB, RESPIRATORY DISTRESS OR S/S OF PAIN NOTED AT THIS TIME. PT. IS BREATHING IRREGULAR WITH LONG PAUSES NOTED IN BETWEEN BREATHS AT 6 BREATHS PER MINUTE WILL CONTINUE TO MONITOR.
[2017-07-08] VITALS: BP 104/56
--- NOTE | 2017-07-08 | NUR ---
MS/RN NOTES PT. IS LYING IN BED RESTING WITH EYES CLOSED AND MOUTH OPEN. PT. IS BREATHING UNEVEN AND UNLABORED ON 6LPM O2 VIA NC. NO SOB, RESPIRATORY DISTRESS OR S/S OF PAIN NOTED AT THIS TIME. PT. IS BREATHING IRREGULAR WITH LONG PAUSES NOTED IN BETWEEN BREATHS AT 5 BREATHS PER MINUTE WILL CONTINUE TO MONITOR.
[2017-07-08] MEDS ORDERED: KEY,NONCONTROL,TO KEEP IN PYXI 1 EA MC ONE (02:18)
[2017-07-08] MEDS: MORPHINE SULFATE 30 MG in IV NS 0.9% 28 ML, PCA TOTAL VOLUME 1 BAG IV PRN ×3 (02:32)
--- NOTE | 2017-07-08 02:32 | NUR ---
MS/RN NOTES CHANGED. PT. MORPHINE BAG ORDERED. NO MEDICATION WASTED. HUNG NEW BAG OF MORPHINE 30MG TITRATED MEDICATION NEEDED, MEDICATION IS NOW ADMINISTERING TO PT. @ 6MG/HR. PT. IS BREATHING UNEVEN AND UNLABORED ON 6LPM O2 VIA NC. NO SOB, RESPIRATORY DISTRESS OR S/S OF PAIN NOTED AT THIS TIME. PT. IS BREATHING IRREGULAR WITH LONG PAUSES NOTED IN BETWEEN BREATHS AT 5 BREATHS PER MINUTE WILL CONTINUE TO MONITOR.
[2017-07-08] MEDS: IPRATROPIUM NEB FS 0.5 MG/2.5 ML AMPUL.NEB NEB SCH ×4 (02:51→19:30)
--- NOTE | 2017-07-08 06:50 | NUR ---
MS/RN NOTES PT. IS LYING IN BED RESTING WITH EYES CLOSED AND MOUTH OPEN. PT. IS NON-VERBAL. BREATHING EVEN AND UNLABORED ON 6LPM O2 VIA NC. NO SOB, RESPIRATORY DISTRESS OR S/S OF PAIN NOTED AT THIS TIME AND THROUGHOUT SHIFT . PT. IS BREATHING UNLABORED AND IRREGULAR WITH LONG PAUSES NOTED IN BETWEEN BREATHS, BREATHING 7 BREATHS, PER MINUTE. PT. WITH [place] CATHETER PRESENT, PATENT AND INTACT DRAINING EVA COLORED URINE. PT. WITH RIGHT FOREARM 18 GAUGE PERIPHERAL IV PRESENT, PATENT AND INTACT ADMINISTERING TO PT. MORPHINE DRIP @ 6MG/HR. PT. APPEARS COMFORTABLE AT THIS TIME. CONTACT ISOLATION IMPLEMENTED AND IN PLACE. PT. WITH FAMILY MEMBERS PRESENT AT BEDSIDE. ALL PT. NEEDS MET. BED LOCKED AND IN LOWEST POSITION, SIDE RAILS UP X3, BED ALARM ON, WILL ENDORSE TO DAYSNMFT NURSE FOR CONTINUITY OF CARE.
--- NOTE | 2017-07-08 07:08 | NUR ---
MS/RN NOTES CALLED PHARMACY FOR ANOTHER BAG OF MORPHINE FOR CRUSHER OPERATOR. CORRUGATED BOX MACHINE OPERATOR STATED THEY WOULD SEND ONE UP. PT. IS CURRENTLY RECEIVING 6MG/HR AND APPEARS COMFORTABLE AT THIS TIME. WILL CONTINUE TO MONITOR.
--- NOTE | 2017-07-08 07:45 | NUR ---
MS RN OPENING NOTES RECEIVED PATIENT IN NO APPARENT DISTRESS. IV LINE IS PATENT AND INTACT. PATIENT IS NON VERBAL. PATIENT IS ON COMFORT MEASURES. NEW 250ML MORPHINE BAG CHANGED. MORPHINE DRIP STARTED AT 6MG/HR. WILL CONTINUE TO MONITOR.
[2017-07-08 08:00] VITALS: BP_SYST 93
[2017-07-08] MEDS: MUPIROCIN OINT 2% 22 GM TUBE SCH (09:11)
[2017-07-08 16:00] VITALS: BP 80/47
--- NOTE | 2017-07-08 18:10 | NUR ---
CHECKED PATIENTS VITAL SIGNS, HEART MONITOR DOES NOT DETECT ANY MORE CARDIAC ACTIVITY. VERIFIED WITH 2 NURSES CAL AND STEVEN. ALL PULSES ARE ABSENT. PATIENT IS NO LONGER BREATHING. PATIENT NO LONGER HAS A PULSE. PATIENT PRONOUNCED AT 1810.
--- NOTE | 2017-07-08 18:50 | NUR ---
CALLED [facility] AND INFORMED THEM ABOUT PATIENT PASSING. CALLED [facility]. DISPATCHED STARTED. PATIENT WILL BE PICKED UP IN 90 MINUTES TO 2 HOURS.
--- NOTE | 2017-07-08 19:00 | NUR ---
ENDORSE TO ASSET MANAGEMENT ANALYST NURSE POST MORTEM CARE AND TEST PREPARER FROM [facility].
--- NOTE | 2017-07-08 19:30 | NUR ---
RN NOTES: RECEIVED ENDORSEMENT AND REMAINS FROM AM SHIFT, PATIENT AT 1810, ALL RELATIVES ARE SITTING IN THE BED SIDE, GIVEN TIME TO STAY WITH THE PATIENT.EXPLAINED TO THEM WILL DO POST MORTEM CARE LATER.
--- NOTE | 2017-07-08 20:00 | NUR ---
RN NOTES: POST MORTEM CARE RENDERED, REMOVED ALL IV CANNULA AND [place] CATH, SPONGE BATH RENDERED, KEPT CLEAN AND NAME TAG PLACE ON THE LEFT TOE, RIGHT WRIST AND ON THE BAG, AWAITING FOR MORTUARY TO P/U REMAINS, FAMILY STAYED WITH THE PATIENT AT BED SIDE.
--- NOTE | 2017-07-08 20:47 | NUR ---
RN NOTES: -REMAINING MORPHINE 210ML, DISCARD AND WITNESSED BY RN/CN AT AROUND 2039. -2044-REMAINS HAND OVER WITH [facility], MORTITIAN:NELY WOOD, PAPERS SIGNED AND RELEASE WITH RN/CN AND PRESENCE OF NUMEROUS RELATIVES.NAME TAG PRESENT ON THE HAND, TOE AND BAG OF THE PATIENT.
== END 2017-07-08 18:10 | disposition expired | DRG 871 ==
LOC: ER 06:22 → TELE 08:53 → MED 07-05 06:24
PROVIDERS: ADMIT Internal Medicine; ATTEND Internal Medicine
DX: A41.9 Sepsis, unspecified organism (principal); J69.0 Pneumonitis due to inhalation of food and vomit; I21.A1 Myocardial infarction type 2; K72.00 Acute and subacute hepatic failure without coma; N17.0 Acute kidney failure with tubular necrosis; Z51.5 Encounter for palliative care; J96.01 Acute respiratory failure with hypoxia; G92 Toxic encephalopathy; R65.21 Severe sepsis with septic shock; E87.0 Hyperosmolality and hypernatremia; E87.2 Acidosis; E03.9 Hypothyroidism, unspecified; D63.8 Anemia in other chronic diseases classified elsewhere; E78.5 Hyperlipidemia, unspecified; E86.0 Dehydration; Z66 Do not resuscitate; I10 Essential (primary) hypertension; R74.0 Nonspecific elevation of levels of transaminase and lactic acid dehydrogenase [LDH]; Z22.322 Carrier or suspected carrier of Methicillin resistant Staphylococcus aureus; L98.8 Other specified disorders of the skin and subcutaneous tissue; E87.6 Hypokalemia; E55.9 Vitamin D deficiency, unspecified; F09 Unspecified mental disorder due to known physiological condition; E86.1 Hypovolemia; G30.9 Alzheimer's disease, unspecified; F02.80 Dementia in other diseases classified elsewhere, unspecified severity, without behavioral disturbance, psychotic disturbance, mood disturbance, and anxiety
CPT/HCPCS: 36415; 36600; 70450-TC; 71045-TC; 80048-TC; 80053-TC; 80076-TC; 80202-TC; 81000-TC; 82140-TC; 82306; 82803-TC; 83605-TC; 83735-TC; 84100-TC; 84155; 84165; 84439-TC; 84443-TC; 84484-TC; 85025-TC; 85730-TC; 87040-TC; 87070-TC; 87081-TC; 87086-TC; 92521; 92526; 93307-TC; 94799-TC; A4216; A4606; A6248; C9113; J2060; J2185; J2270; J2274; J2543; J3370; J3480; J3490; J7030; J7050; J7060; J7070; Z7610